=== PATIENT | male | born 1985 | race Caucasian/White ===

== ENCOUNTER 2018-12-18 07:47 | Emergency (ER) | payer BC ==
[~2018-12-18] VITALS: Ht 167.6 cm; Wt 100.0 kg
[2018-12-18 07:49] VITALS: BP 171/96; PULSE 79; RESP 16; Ht 167.6 cm; Wt 100.0 kg
[2018-12-18] MEDS ORDERED: KETOROLAC 60 MG INJ IM STA (08:10)
[2018-12-18] MEDS ORDERED: CYCL10TA7 PO (08:12)
[2018-12-18] MEDS ORDERED: HYDR-4011 PO (08:12)
[2018-12-18] MEDS ORDERED: NAPR-985 PO (08:12)
[2018-12-18] MEDS ORDERED: MED4DP PO (08:13)
--- NOTE | 2018-12-18 08:34 | ERD ---
ER Documentation Chief Complaint Chief Complaint LOWER BACK PAIN X 4 DAYS. HPI 33-year-old male presenting with lower back pain times 4 days. Patient has some pain with lifting. He works as a DIVISION MANAGER describes it as a stabbing pain in the left lower paraspinous muscles on the left side. Patient took ibuprofen yesterd ay but no medication today. Normal urination bowel movement. Denies medical problems. NKDA. Surgical history denies. Social history denies ROS All systems reviewed and are negative except as per history of present illness. Medications Home Meds Active Scripts Methylprednisolone* (Medrol* DOSE PACK) 4 Mg/Dose-Pack Tab.ds.pk, 4 MG PO . DIRECTED, #1 PACKET Prov:HILTON ROMAN PA-C 12/18/18 Cyclobenzaprine Hcl* (Cyclobenzaprine Hcl*) 10 Mg Tablet, 10 MG PO TID, #15 TAB Prov:HILTON ROMAN PA-C 12/18/18 Naproxen* (Naprosyn*) 500 Mg Tablet, 500 MG PO BID PRN for PAIN AND/OR INFLAMMATION, #30 TAB Prov:HILTON ROMAN PA-C 12/18/18 Hydrocodone/Acetaminophen (Spencer 5-325 Tablet) 1 Each Tablet, 1 TAB PO Q6H PRN for PAIN, #7 TAB Prov:HILTON ROMAN PA-C 12/18/18 Allergies Allergies: Coded Allergies: No Known Allergy (Unverified , 02/27/15) PMhx/Soc Hx Alcohol Use: No Hx Substance Use: No Hx Tobacco Use: No Smoking Status: Never smoker FmHx Family History: No diabetes, No coronary disease, No other Physical Exam Vitals Vital Signs Date Temp Pulse Resp B/P (MAP) Pulse Ox O2 O2 Flow FiO2 Time Delivery Rate 12/18/18 96.9 79 16 171/96 100 07:49 (121) Physical Exam GENERAL: The patient is well-appearing, well-nourished, in no acute distress CHEST: Clear to auscultation bilaterally. There are no rales, wheezes or rhonchi. HEART: Regular rate and rhythm. No murmurs, clicks, rubs or gallops. BACK: No midline or flank tenderness. No tenderness palpation in the lower paraspinous muscles of the left lower back. EXTREMITIES: Equal pulses bilaterally. There is no peripheral clubbing, cyanosis or edema. No focal swelling or erythema. Full range of motion. Grossly neurovascularly intact. NEUROLOGIC: Alert and oriented. Cranial nerves II through XII intact. Motor strength in all 4 extremities with 5 out of 5 strength. Sensation grossly intact. SKIN: There is no apparent rash or petechiae. The skin is warm and dry. Results 24 hrs Current Medications Medications Dose Sig/Bharath Start Time Status Last (Trade) Ordered Route PRN Stop Time Admin Dose Reason Admin Ketorolac 60 mg ONCE STAT 12/18/18 DC 12/18/18 Tromethamine IM 08:10 08:20 (Toradol) 12/18/18 08:11 Procedures/MDM ER course: Toradol given today. MDM: 33-year-old male presenting with Lower back pain. I have low suspicion for discitis or epidural abscess. I have low suspicion for cauda equina. Patient has musculoskeletal strain. Patient is discharged stricter precautions and told to follow-up with primary care within 1-2 days for close evaluation. Patient is told symptoms change or worsen to return immediately to the ER. All questions answered at discharge Departure Diagnosis: Primary Impression: Back pain Condition: Stable Patient Instructions: Back Pain (Acute Or Chronic) Referrals: COMM[facility]ITY CLIN[facility] YOU HAVE RECEIVED A MEDICAL SCREENING EXAM AND THE RESULTS INDICATE THAT YOU DO NOT HAVE A CONDITION THAT REQUIRES URGENT TREATMENT IN THE EMERGENCY DEPARTMENT. FURTHER EVALUATION AND TREATMENT OF YOUR CONDITION CAN WAIT UNTIL YOU ARE SEEN IN YOUR DOCTORS OFFICE WITHIN THE NEXT 1-2 DAYS. IT IS YOUR RESPONSIBILITY TO MAKE AN APPOINTMENT FOR FOLOW-UP CARE. IF YOU HAVE A PRIMARY DOCTOR --you should call your primary doctor and schedule an appointment IF YOU DO NOT HAVE A PRIMARY DOCTOR YOU CAN CALL OUR PHYSICIAN REFERRAL HOTLINE AT IF YOU CAN NOT AFFORD TO SEE A PHYSICIAN YOU CAN CHOSE FROM THE FOLLOWING [facility] CL[facility] [id number] [place] [facility] [address] [facility] [address] [facility] [address] [facility] [address] [facility]. [facility] [address] Additional Instructions: FOLLOW UP WITH YOUR PRIMARY CARE PHYSICIAN TOMORROW.Return to this facility if you are not improving as expected. HILTON ROMAN PA-C Dec 18, 2018 08:34
== END 2018-12-18 08:41 | disposition home or self-care (01) ==
LOC: FTE 07:47
DX: M54.5 Low back pain (principal)
CPT/HCPCS: 96372; 99284; J1885